=== PATIENT | male | born 1935 | race Caucasian/White ===

== ENCOUNTER 2016-08-05 20:06 | Inpatient (IN) | payer OTHER ==
[~2016-08-05] VITALS: Ht 180.3 cm; Wt 94.8 kg
--- NOTE | ~2016-08-05 | HC ---
[facility] [place] [address] CONSULTATION Name: BUBBA VICKERS Room #: 203-P ADM IN M.R.#: [id number] Admission: 08/05/16 Attend Phys: Lopez Mccall MD Discharge: Date of : 39 Report #: [id number] THIS REPORT FOR: //name// CC: Lopez Saab DATE OF SERVICE: 08/06/2016 Patient is a 81-year-old male followed by Dr. Jimenez Saab and also my partner, Dr. Ortiz. He presented feeling some shortness of breath, shakiness with some atypical chest pain. He was found to be in AFib with rapid ventricular response and subsequently transferred here at [facility]. He was hemodynamically stable, but he states he was very scared from this whole event. He has never had a history of AFib looking through our limited records, and he was only hospitalized at [facility] once in 2002 for nephrectomy due to hydronephrosis. He saw Dr. Ortiz last summer. He has been on the same medications. He states he did lose his in the interim and has had terrible depression with that. He is accompanied by his daughter here. He is now converted to sinus rhythm 80s to 90s. He has not been sick. This was spontaneous occurrence yesterday for the first time, but he felt the tachycardia. MEDICATIONS: He is on Zyrtec, Lumigan, glimepiride 6 mg once a day, Toprol 50, Lipitor 40, baby aspirin, Norvasc 10 b.i.d., lisinopril/HCT 20/12.5, clonidine 0.2 b.i.d. 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 SOCIAL HISTORY: Recently . Lives independently. He was a 3 pack a day smoker until 10 years ago. No alcohol. He is retired from [employer]: [employer]. FAMILY HISTORY: Positive for strokes, but no premature disease that he can remember. ALLERGIES: No known drug allergies. REVIEW OF SYSTEMS: Negative except for some occasional nocturia hesitancy. PHYSICAL EXAMINATION: VITAL SIGNS: Blood pressure 150/90, pulse is 90s. HEENT: He has enucleated right eye blindness. No xanthomas. Pharynx is clear. NECK: Shows preserved upstrokes without JVD or bruits. LUNGS: Markedly prolonged phase, diminished in the bases. [address] [address] CONSULTATION Name: BUBBA VICKERS Room #: 203-P ADM IN M.R.#: [id number] Admission: 08/05/16 Attend Phys: Lopez Mccall MD Discharge: Date of : 39 Report #: [id number] CARDIOVASCULAR: Distant heart tones, S1, S2. Faint holosystolic murmur was noted. ABDOMEN: Soft. No HSM or abdominal bruit. EXTREMITIES: Trace of edema, mild venous stasis changes, distal pulses diminished, but intact. NEUROLOGIC: Nonfocal. SKIN: Warm and dry without xanthoma or ulcer. MUSCULOSKELETAL: No gross joint deformity. ASSESSMENT: 1. Atrial fibrillation with rapid ventricular response, symptomatic. 2. Chronic obstructive pulmonary disease. 3. Mild ischemic cardiomyopathy with history of limited inferior wall infarct, last nuclear exam was 05/2015. 4. Degenerative joint disease. 5. History of lung cancer with radiation. 6. Diabetes. RECOMMENDATIONS AND PLAN: He is currently converted. We will utilize p.o. Cardizem and p.o. amiodarone to maintain sinus rhythm. I would still opt for anticoagulation here. Electrolytes replacement. There is a questionable infiltrate in the left lower lobe. I will currently treat that with the primary. This may what had precipitated, although he denies being significantly sick previously. He states he has some coughing. We will continue the other medications, obviously has some component of refractory hypertension. Presumably stabilized him, place him on anticoagulation and consider an outpatient repeat stress testing in the light the fact that he had some chest discomfort with this whole event, but currently is pain free. Further recommendations, pending his clinical course. Thank you for asking me to assist in the care of this patient. By: 0914 1533 Dany Vincent MD, FACC /nt
--- NOTE | ~2016-08-05 | H ---
[facility] [place] [address] HISTORY AND PHYSICAL Name: BUBBA VICKERS JR Room #: 203-P [facility] IN M.R.#: [id number] Admission: 08/05/16 Attend Phys: Lopez Mccall MD Discharge: 08/08/16 Date of : 39 Report #: [id number] THIS REPORT FOR: //name// CC: Lopez Saab DICTATED BY: Alyssa DENT ATTENDING PHYSICIAN: Dr. Casarez. PRIMARY CARE PHYSICIAN: Jimenez Saab M.D. CHIEF COMPLAINT: Shortness of breath. HISTORY OF PRESENT ILLNESS: The patient is a 81-year-old elderly male who was initially taken to [facility] for respiratory distress. He said that it came on very suddenly when he was at rest this evening. He has had a recent cough with some phlegm production, but he felt that was improving. Overall, he has had increasing shortness of breath as well as dyspnea on exertion. He denies having any chest pain with this episode tonight. Denies any significant edema. He has had somewhat of a cough with some clear phlegm production. He denies any orthopnea. He did have a stress test about a year ago with Dr. Ortiz and he was told that it was negative. He was evaluated at [place] and noted to have fluid overload, so he was given Lasix as well as Cardizem, Levaquin, aspirin and Nitro Paste. He is currently resting much more comfortably. He does have a history of some chronic kidney disease growing up. He just recently saw a laboratory development technician, Dr. Maldonado, who had a renal ultrasound performed. He does not know those results yet. PAST MEDICAL HISTORY: Diabetes; hypertension; diverticulitis; nephrolithiasis; blindness; right eye, abdominal aortic aneurysm; lung cancer, status post radiation hyperlipidemia and . PAST SURGICAL HISTORY: Right nephrectomy, lung biopsy and Zenker's diverticulum. ALLERGIES: None. HOME MEDICATIONS: Lisinopril 20 mg p.o. b.i.d., sodium bicarbonate 650 mg p.o. b.i.d., amlodipine 10 mg p.o. b.i.d., clonidine 0.2 mg b.i.d., Lumigan eyedrops one drop to each eye q. evening, atorvastatin 80 mg daily, metoprolol XL 50 mg daily, glimepiride 4 mg p.o. daily, aspirin 81 mg p.o. daily, Zyrtec 10 mg p.o. and cinnamon stalk daily. SOCIAL HISTORY: The patient lives alone. He is a since March of this year, when his . There is no history of alcohol or drug use. He is an ex-smoker, having smoked up to 2 packs of cigarettes per day [address] [address] HISTORY AND PHYSICAL Name: BUBBA VICKERS Room #: 203-P [facility] IN ..#: [id number] Admission: 08/05/16 Attend Phys: Lopez Mccall MD Discharge: 08/08/16 Date of : 39 Report #: [id number] since the age of 17. He quit smoking 12 years ago. FAMILY HISTORY: Significant for throat cancer in his brother and also family members with diabetes and stroke. His uncle had an HI. His brother had nephrectomy for renal cancer. PHYSICAL EXAMINATION: GENERAL: The patient is an alert male in no acute distress. VITAL SIGNS: Temperature is 36.6, heart rate 84, respirations 16, blood pressure is 117/77 and oxygen 90% on room air. HEENT: PERRLA. Sclerae are nonicteric. Oral mucosa is pink and moist. NECK: Supple. No JVD noted. CARDIAC: Heart rate is irregular, but no murmurs, rubs or gallops. RESPIRATORY: Breath sounds are clear, bilateral upper lobes. He does have a few fine crackles in both bases. Breathing is nonlabored. ABDOMEN: Obese, soft, round, nontender and nondistended, with positive bowel sounds. VASCULAR: With 1+ bilateral lower extremity edema. Pedal pulses are 2+. NEUROLOGIC: The patient is alert and oriented times 3. Speech is clear. He is answering questions appropriately and following commands. No focal weakness noted. LABS AND DIAGNOSTICS: WBC 11, hemoglobin 13.5 and platelets 337,000. Sodium 143, potassium 4.3, BUN 47, creatinine 1.7 and glucose is 170. Lactate is 2.5. BNP is 1575. Troponins negative. LFTs are within normal limits. Chest x-ray showed lingular pneumonia, which was prominent alongside some interstitial changes felt to represent edema versus fibrotic or emphysematous changes. EKG showed atrial flutter with rapid rate of 125. ASSESSMENT AND PLAN: 1. Acute heart failure with unknown ejection fraction. The patient denies any history of congestive heart failure. We will try a few more doses of IV Lasix for diuresis and check an echocardiogram. Consult cardiology, who was also concerned for Takotsubo cardiomyopathy, as he is a recent . 2. Atrial fibrillation with rapid ventricular response. This is new onset and looks well. His rate is now controlled on the Cardizem drip. We will try to wean that off and again, cardiology is consulted. 3. Diabetes type 2. Blood sugars are stable. Continue glimepiride as at home and add sliding scale insulin. 4. Chronic kidney disease stage 3. He was recently evaluated by Dr. Maldonado with nephrology and had a renal ultrasound, which he was reported as negative. Since he does have a prior right nephrectomy, his renal function has been monitored closely. 5. Hypertension. Blood pressure is stable. Continue home meds. 6. History of lung cancer. According to the patient, this was only treated [facility] [address] [place] [address] HISTORY AND PHYSICAL Name: BUBBA VICKERS Room #: 203-P [facility] IN ..#: [id number] Admission: 08/05/16 Attend Phys: Lopez Mccall MD Discharge: 08/08/16 Date of : 39 Report #: [id number] with radiation treatments and his last 2 CAT scans have been clear for any residual disease. 7. Possible pneumonia. The patient did have mildly elevated lactate and he did receive Levaquin. The chest x-ray mentioned a lingular pneumonia, but this may also be related to scarring from his prior lung cancer. Continue antibiotics for now. 8. Deep venous thrombosis prophylaxis, place SCDs. We will continue to follow the patient closely throughout the hospitalization and make changes based on clinical status. <ELECTRONICALLY SIGNED> By: Colby Casarez MD 08/08/16 1312 0949 1239 Colby Casarez MD /shahla
--- NOTE | ~2016-08-05 | 2DMMODE ---
[facility] [place] [place] [address] [place] [address] 2 D/M-MODE ECHOCARDIOGRAM Name: BUBBA VICKERS Room #: 203-P ADM IN .R.#: [id number] Admission: 08/05/16 Attend Phys: Maria L Garrido Discharge: Date of : 39 Date of Service: 08/06/16 1150 Report #: [id number] THIS REPORT FOR: //name// APPROVED REPORT Study performed: 08/06/2016 10:32:54 EXAM: Comprehensive 2D, Doppler, and color-flow Echocardiogram Patient Location: Echo lab Room #: [facility] Status: routine Other Information Study Quality: Adequate Indications Congestive Heart Failure Atrial Fibrillation Dyspnea 2D Dimensions RVDd: 37.56 mm LVEF(%): 43.17 (>50%) IVSd: 12.21 (7-11mm) LVOT Diam: 21.99 (18-24mm) LVDd: 51.49 mm PWd: 12.58 (7-11mm) Ascending Ao: 36.43 (22-36mm) LVDs: 40.46 (25-40mm) Aortic Root: 36.29 mm Clarke's LVEF: 43.17 % Volumes Left Atrial Volume (Systole) Single Plane 4CH: 68.46 mL Single Plane 2CH: 66.76 mL LA ESV Index: 40.00 mL/m2 Aortic Valve AoV Peak Tevin.: 1.82 m/s AO Peak Gr.: 13.28 mmHg LVOT Max P.25 mmHg AO Mean Gr.: 7.91 mmHg AO V2 Mean: 1.37 m/s LVOT Max V: 1.03 m/s AO V2 VTI: 30.82 cm YING Vmax: 2.15 cm2 Mitral Valve E/A Ratio: 1.3 MV Decel. Time: 115.[address] [facility] [place] [place] [employer] [place] [address] 2 D/M-MODE ECHOCARDIOGRAM Name: BUBBA VICKERS Room #: 203-P [facility] IN M.R.#: [id number] Admission: 08/05/16 Attend Phys: Maria L Garrido Discharge: Date of : 39 Date of Service: 08/06/16 1150 Report #: [id number] E Max Tevin.: 1.17 m/s MV A Tevin.: 0.89 m/s MV PHT: 33.48 ms IVRT: 48.44 ms Pulmonary Valve PV Peak Tevin.: 1.08 m/s PV Peak Gr.: 4.67 mmHg Tricuspid Valve TR Peak Tevin.: 4.02 m/s RAP Estimate: 5.00 mmHg TR Peak Gr.: 64.62 mmHg PA Pressure: 70.00 mmHg Left Ventricle The left ventricle is normal size. Mild concentric left ventricular hypertrophy. Left ventricular systolic function is normal LVEF is 50%. Moderate diastolic dysfunction is present (pseudonormal filling). Right Ventricle The right ventricle is normal size. The right ventricular systolic function is normal. Atria Left atrium is dilated. Right atrium is at the upper limits of normal. Aortic Valve Aortic valve is calcified. No aortic regurgitation is present. There is no aortic valvular stenosis. Mitral Valve There is mitral annular calcification. Mild mitral regurgitation. No evidence of mitral valve stenosis. Tricuspid Valve The tricuspid valve is normal in structure. There is moderate tricuspid regurgitation. The right atrial pressure is estimated at 5 mmHg. There is moderate-severe pulmonary hypertension with an estimated PAP of 70mmHg. Pulmonic Valve The pulmonary valve is normal in structure. There is no pulmonic valvular regurgitation. Great Vessels [address] [address] 2 D/M-MODE ECHOCARDIOGRAM Name: BUBBA VICKERS Room #: 203-P [facility] IN .R.#: [id number] Admission: 08/05/16 Attend Phys: Maria L Garrido Discharge: Date of : 39 Date of Service: 08/06/16 1150 Report #: [id number] The aortic root is normal in size. Ascending aorta is not well visualized. IVC is normal in size and collapses >50% with inspiration. Pericardium There is no pericardial effusion. <Conclusion> Left ventricular systolic function is at lower limits of normal LVEF is 50%. Both atria are dilated. Aortic valve is calcified, no aortic valvular stenosis or insuffiency. There is mitral annular calcification. Mild mitral regurgitation. Pulmonary artery pressure of 70mmHg There is no pericardial effusion. <ELECTRONICALLY SIGNED> By: Kane Arias MD, [facility] 08/06/16 1150 1150 1150 Kane Arias MD, FACC /INF
[2016-08-05] MEDS ORDERED: ZESTRIL20 MG PO (22:14)
[2016-08-05] MEDS ORDERED: SODIUM BICARBO650 M3 PO (22:15)
[2016-08-05] MEDS ORDERED: AMLODIPINE BESY10 MG PO (22:16)
[2016-08-05] MEDS ORDERED: LUMIGAN2.5 M1 OP (22:17)
[2016-08-05] MEDS ORDERED: CATAPRES0.2 MG PO (22:17)
[2016-08-05] MEDS ORDERED: LIPITOR40 MG PO (22:18)
[2016-08-05] MEDS ORDERED: TOPROL XL50 MG PO (22:19)
[2016-08-05] MEDS ORDERED: AMARYL4 MG PO (22:19)
[2016-08-05] MEDS ORDERED: ASPIR 8181 M1 PO (22:20)
[2016-08-05] MEDS ORDERED: CINNAMON500 MG PO (22:21)
[2016-08-05] MEDS ORDERED: ZYRTEC10 M4 PO (22:21)
[2016-08-05 22:26] VITALS: BP 157/77
[2016-08-05 23:58] VITALS: BP 152/76
[2016-08-06 04:10] LABS: HEMATOCRIT 34.3 % (42.0-52.0); HEMOGLOBIN 11.4 gm/dL (14.0-18.0); MCH 29.5 pg (26.0-34.0); MCHC 33.2 g/dL (28.0-37.0); MCV 88.9 fL (80.0-100.0); RBC 3.86 mil/uL (4.50-6.00); RDW 15.2 % (10.5-14.5)
[2016-08-06 04:23] LABS: CALCIUM 8.6 mg/dL (8.5-10.1); MAGNESIUM 1.2 mg/dL (1.8-2.4); POTASSIUM 4.7 mmol/L (3.5-5.1)
[2016-08-06 04:38] VITALS: BP 152/75
[2016-08-06 08:57] VITALS: BP 152/79
[2016-08-06 12:47] VITALS: BP 133/65
[2016-08-06 17:43] VITALS: BP 139/71
[2016-08-06 19:23] VITALS: BP 131/70
[2016-08-07 01:49] LABS: HEMATOCRIT 33.2 % (42.0-52.0); HEMOGLOBIN 11.1 gm/dL (14.0-18.0); MCH 29.8 pg (26.0-34.0); MCHC 33.4 g/dL (28.0-37.0); MCV 89.2 fL (80.0-100.0); RBC 3.73 mil/uL (4.50-6.00); RDW 15.5 % (10.5-14.5); WBC 7.9 thou/uL (4.0-11.0)
[2016-08-07 01:52] LABS: CALCIUM 8.7 mg/dL (8.5-10.1); CREATININE 2.2 mg/dL (0.7-1.3); MAGNESIUM 2.2 mg/dL (1.8-2.4); POTASSIUM 4.3 mmol/L (3.5-5.1)
[2016-08-07 03:39] VITALS: BP 119/71
[2016-08-07 08:20] VITALS: BP 126/58
[2016-08-07 12:55] VITALS: BP 109/54
[2016-08-07 16:40] VITALS: BP 177/77
[2016-08-07 19:32] VITALS: BP 147/68
[2016-08-08 03:53] VITALS: BP 130/69
[2016-08-08 07:42] VITALS: BP 130/69
[2016-08-08 07:55] VITALS: BP 144/62
[2016-08-08] MEDS ORDERED: PACERONE 200 M200 M1 PO (09:43)
[2016-08-08] MEDS ORDERED: ELIQUIS5 MG PO (09:43)
[2016-08-08] MEDS ORDERED: METOPROLOL SUCC25 M1 PO (09:43)
[2016-08-08] MEDS ORDERED: CARDIZEM CD 18180 M3 PO (09:43)
[2016-08-08] MEDS ORDERED: AUGMENTIN 875875 MG PO (11:38)
[2016-08-08 12:00] VITALS: BP 130/69
== END 2016-08-08 11:29 | disposition home health service (06) | DRG 871 ==
LOC: 2N 20:06
PROVIDERS: Family Medicine; Nurse Practitioner Acute Care; Nurse Practitioner Adult Health
DX: A41.9 Sepsis, unspecified organism (principal); J18.9 Pneumonia, unspecified organism; I13.0 Hypertensive heart and chronic kidney disease with heart failure and stage 1 through stage 4 chronic kidney disease, or unspecified chronic kidney disease; J44.1 Chronic obstructive pulmonary disease with (acute) exacerbation; I48.91 Unspecified atrial fibrillation; E78.00 Pure hypercholesterolemia, unspecified; Z60.2 Problems related to living alone; M19.90 Unspecified osteoarthritis, unspecified site; I25.5 Ischemic cardiomyopathy; E11.22 Type 2 diabetes mellitus with diabetic chronic kidney disease; N18.3 Chronic kidney disease, stage 3 (moderate); H54.0 Blindness, both eyes; I71.4 Abdominal aortic aneurysm, without rupture; I27.2 Other secondary pulmonary hypertension; E78.5 Hyperlipidemia, unspecified; Z98.42 Cataract extraction status, left eye; Z98.41 Cataract extraction status, right eye; Z87.442 Personal history of urinary calculi; Z85.118 Personal history of other malignant neoplasm of bronchus and lung; Z87.891 Personal history of nicotine dependence; Z90.5 Acquired absence of kidney; Z98.52 Vasectomy status; Z79.82 Long term (current) use of aspirin; Z79.899 Other long term (current) drug therapy; Z80.8 Family history of malignant neoplasm of other organs or systems; Z83.3 Family history of diabetes mellitus; Z82.3 Family history of stroke; Z82.49 Family history of ischemic heart disease and other diseases of the circulatory system; Z84.1 Family history of disorders of kidney and ureter
CPT/HCPCS: 10081

== ENCOUNTER 2016-08-25 02:01 | Inpatient (IN) | payer OTHER ==
[~2016-08-25] VITALS: Ht 180.3 cm; Wt 91.4 kg
--- NOTE | ~2016-08-25 | CATHLAB ---
[facility] [address] [address] [place] [address] INVASIVE PROCEDURE REPORT Name: BUBBA VICKERS Room #: 213-P [facility] IN ..#: [id number] Admission: 08/25/16 Attend Phys: Adela Fitzgerald Discharge: Date of : 39 Date of Service: 08/31/16 0918 Report #: [id number] THIS REPORT FOR: //name// APPROVED REPORT Patient Details The patient is a 81 year-old male Indication Non-STEMI , Heart failure, Positive stress test Risk Factors Hypercholesterolemia, HypertensionRenal Failure Previous Procedures/Diagnoses Previous CA Procedure Narrative The patient was brought electively to the Cardiac Catheterization Laboratory and was prepped and draped in a sterile manner. The Right Groin^ was infiltrated with 1% Lidocaine subcutaneous anesthesia. A PINNACLE 4FR Sheath #[id number] sheath was inserted into the RFA^. Coronary angiography was performed using coronary diagnostic catheters. The right coronary system was accessed and visualized with a JR4 catheter. The left coronary system was accessed and visualized with a JL4 catheter. Left ventricular/Aortic Valve gradient assessed via catheter pullback. The patient tolerated the procedure well and there were no complications associated with the procedure. There was no hematoma. Intraoperative Conscious Sedation Sedation start time: 8:01 Case end Time: 8:23 Fluoro Time: 3.00 minutes Dose: 501 mGy Contrast Type and Amount: Visipaque 27 ml Coronary Angiography The patient's coronary anatomy is right dominant. Diagnostic Cath Left Main Large caliber vessel with moderate stenosis at the distal segment, 40-50%. LAD Severe stenosis at the ostium, 70-80%. Diagonal 1 Ostial stenosis of 60-70%. [facility] [address] [place] [address] INVASIVE PROCEDURE REPORT Name: ALEEBUBBA Marisela Room #: 213-P [facility] IN ..#: [id number] Admission: 08/25/16 Attend Phys: Adela Fitzgerald Discharge: Date of : 39 Date of Service: 08/31/16 0918 Report #: [id number] Diagonal 2 Ostial stenosis of 95%(small caliber vessel). Circumflex Severe stenosis at the proximal segment, 90%. Right Coronary Subtotal occlusion in the midsegment. The distal RCA and multiple branches are filled via collateral circulation from the left coronary artery. Left Ventriculography Left Ventriculography was not performed. Ejection Fraction was 45-50% based off patient's Nuclear Cardiac Stress Test. LVEDP is approximately 15 mmHg. No gradient across the aortic valve. Hemodynamics The aortic pressure is 161/71 mmHg with a mean of 98 mmHg. The left ventricular pressure is 164/9 mmHg with a mean of mmHg. The left ventricular end diastolic pressure is 18 mmHg. Conclusion Severe three-vessel coronary artery disease. Plan is to obtain CV consultation for bypass surgery. Aggressive medical therapy is recommended. Recommendations Aggressive Medical Therapy CABG <ELECTRONICALLY SIGNED> By: Yoel Ortiz MD 08/31/16917 7 7 Yoel Ortiz MD /INF
--- NOTE | ~2016-08-25 | EKG ---
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: CON : 1935 Requested By: Jeremy Echavarria Order Number: [id number] MD: Kane Arias Measurements Intervals [place] Rate: 61 P: 34 HI: 150 QRS: 67 QRSD: 108 T: -14 QT: 507 QTc: 511 Interpretive Statements Sinus rhythm Abnormal R-wave progression, early transition Borderline repolarization abnormality Prolonged QT interval Compared to ECG 07/17/2007 09:58:29 ST segment abnormality is less pronounced early R-wave progression now present Electronically Signed On 08-27-2016 9:22:26 CDT by Kane Arias [email or web address] <ELECTRONICALLY SIGNED> By: Kane Arias MD, [facility] 08/27/16 0922 0747 0747 Kane Arias MD, [facility] /EPI
--- NOTE | ~2016-08-25 | EKG ---
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 : 1935 Requested By: Cindy Arreaga Order Number: [id number] MD: Kane Arias Measurements Intervals [place] Rate: 103 P: 46 IN: 169 QRS: 20 QRSD: 120 T: 86 QT: 388 QTc: 508 Interpretive Statements Sinus tachycardia LVH with IVCD and secondary repol abnrm Prolonged QT interval Compared to ECG 07/17/2007 09:58:29 ST segment abnormality now present Left ventricular hypertrophy now present Prolonged QT interval now present Electronically Signed On 08-27-2016 9:10:59 CDT by Kane Arias [email or web address] <ELECTRONICALLY SIGNED> By: Kane Arias MD, [facility] 08/27/16 0910 1104 1104 Kane Arias MD, [facility] /EPI
--- NOTE | ~2016-08-25 | SPIROMETRY ---
[facility] [address] [place] [address] SPIROMETRY Name: BUBBA VICKERS JR Room #: 213-P ADM IN M.R.#: [id number] Admission: 08/25/16 Attend Phys: Adela Moran MD Discharge: Date of : 39 Report #: [id number] THIS REPORT FOR: //name// COPIES FOR: >> SPIROMETRY: (BTPS) Height: 70 in cm Weight: 194 lbs kg Exam Date: 08/31/16 PRE-RX POST-RX PRED BEST %PRED BEST %PRED %CHG FVC LITERS . 3.89 . 1.922. . 75 . 2.95 . 76 . 1 FEV1 LITERS . 3.02 . 1.92 . 64 . 1.97 . 65 . 3 FEV1/FVC % . 79 . 66 . 84 . 67 . 85 . 2 MIG85-01% L/Sec . 2.92 . 1.19 . 41 . 1.08 . 37 . -14 PEF L/SEC . 7.98 . 4.82 . 60 . 5.72 . 72 . 19 FEF50/FIF50 UNITLESS . . . . . . By: D: /MARIYA
[2016-08-25 02:00] VITALS: BP 178/90
[~2016-08-25 02:01] MED LIST: AMARYL4 MG PO; AMLODIPINE BESY10 MG PO; ASPIR 8181 M1 PO; AUGMENTIN 875875 MG PO; CARDIZEM CD 18180 M3 PO; CATAPRES0.2 MG PO; CINNAMON500 MG PO; ELIQUIS5 MG PO; LIPITOR40 MG PO; LUMIGAN2.5 M1 OP; METOPROLOL SUCC25 M1 PO; PACERONE 200 M200 M1 PO; SODIUM BICARBO650 M3 PO; TOPROL XL50 MG PO; ZESTRIL20 MG PO; ZYRTEC10 M4 PO
[2016-08-25 03:00] VITALS: BP 169/79
[2016-08-25] MEDS ORDERED: ZESTRIL20 MG PO (04:23)
[2016-08-25 05:59] LABS: CREATININE 1.8 mg/dL (0.7-1.3)
[2016-08-25 08:03] VITALS: BP 164/95
[2016-08-25 08:27] LABS: CK-MB MASS 34.1 ng/mL (<0.5-3.6)
[2016-08-25 08:31] LABS: TROPONIN-I 11.98 ng/mL (<0.04-0.07)
[2016-08-25 11:12] LABS: TROPONIN-I 12.7 ng/mL (<0.04-0.07)
[2016-08-25 11:15] VITALS: BP 183/95
[2016-08-25 12:27] LABS: CK-MB MASS 35.7 ng/mL (<0.5-3.6)
[2016-08-25 15:41] LABS: CK-MB MASS 21.1 ng/mL (<0.5-3.6)
[2016-08-25 15:43] LABS: TROPONIN-I 10.48 ng/mL (<0.04-0.07)
[2016-08-25 16:17] VITALS: BP 116/60
[2016-08-25 19:43] LABS: CK-MB MASS 17.5 ng/mL (<0.5-3.6)
[2016-08-25 19:45] LABS: TROPONIN-I 10.31 ng/mL (<0.04-0.07)
[2016-08-25 20:35] VITALS: BP 142/78
[2016-08-26 00:20] VITALS: BP 141/76
[2016-08-26 04:17] VITALS: BP 142/76
[2016-08-26 06:27] LABS: CALCIUM 8.2 mg/dL (8.5-10.1); CREATININE 2.3 mg/dL (0.7-1.3); POTASSIUM 4.6 mmol/L (3.5-5.1)
[2016-08-26 07:32] VITALS: BP 150/77
[2016-08-26 11:03] LABS: HEMATOCRIT 33.7 % (42.0-52.0); HEMOGLOBIN 10.8 gm/dL (14.0-18.0); MANUAL DIFF YES; MCH 28.7 pg (26.0-34.0); MCHC 32.1 g/dL (28.0-37.0); MCV 89.4 fL (80.0-100.0); PLATELET COUNT 348 thou/uL (150-400); RBC 3.77 mil/uL (4.50-6.00); RDW 14.9 % (10.5-14.5); WBC 11.6 thou/uL (4.0-11.0)
[2016-08-26 11:12] VITALS: BP 142/70
[2016-08-26 11:19] LABS: MAGNESIUM 1.3 mg/dL (1.8-2.4)
[2016-08-26 11:35] LABS: ABSOLUTE NEUTROPHILS 10.2 thou/uL (1.4-8.2); PLATELET ESTIMATE NORMAL; TOTAL CELL COUNT 100
[2016-08-26 11:42] LABS: TROPONIN-I 6.01 ng/mL (<0.04-0.07)
[2016-08-26 15:11] VITALS: BP 108/60
[2016-08-26 19:31] VITALS: BP 151/75
[2016-08-27 05:30] VITALS: BP 163/72
[2016-08-27 05:48] LABS: HEMATOCRIT 33.5 % (42.0-52.0); HEMOGLOBIN 11.2 gm/dL (14.0-18.0); MCH 29.2 pg (26.0-34.0); MCHC 33.3 g/dL (28.0-37.0); MCV 87.6 fL (80.0-100.0); RBC 3.82 mil/uL (4.50-6.00); RDW 14.8 % (10.5-14.5); WBC 9.6 thou/uL (4.0-11.0)
[2016-08-27 06:12] LABS: CREATININE 2.5 mg/dL (0.7-1.3); MAGNESIUM 1.3 mg/dL (1.8-2.4); POTASSIUM 4.3 mmol/L (3.5-5.1)
[2016-08-27 07:32] VITALS: BP 166/73
[2016-08-27 12:09] VITALS: BP 176/82
[2016-08-27 15:35] VITALS: BP 109/84
[2016-08-27 19:55] VITALS: BP 108/56
[2016-08-28 00:08] VITALS: BP 110/60
[2016-08-28 07:36] LABS: CALCIUM 8.2 mg/dL (8.5-10.1); CREATININE 2.6 mg/dL (0.7-1.3); POTASSIUM 4.5 mmol/L (3.5-5.1)
[2016-08-28 08:30] VITALS: BP 145/65
[2016-08-28 12:11] LABS: URINE BILIRUBIN NEGATIVE (Negative); URINE BLOOD NEGATIVE (Negative); URINE COLOR YELLOW; URINE GLUCOSE-RANDOM* NEGATIVE (Negative); URINE KETONES NEGATIVE (Negative); URINE NITRITE NEGATIVE (Negative); URINE PROTEIN (DIPSTICK) NEGATIVE (Negative); URINE UROBILINOGEN 0.2 E.U./dl (0.2-1.0)
[2016-08-28 12:26] LABS: URINE CREATININE-RANDOM* 66.2 mg/dL
[2016-08-28 15:42] VITALS: BP 139/71
[2016-08-28 20:20] VITALS: BP 131/59
[2016-08-29 05:08] VITALS: BP 132/68
[2016-08-29 06:44] LABS: ALBUMIN 2.4 g/dL (3.4-5.0); CALCIUM 8.2 mg/dL (8.5-10.1); CREATININE 2.1 mg/dL (0.7-1.3); PHOSPHORUS 3.3 mg/dL (2.5-4.9); POTASSIUM 4.4 mmol/L (3.5-5.1)
[2016-08-29 09:13] VITALS: BP 153/79
[2016-08-29 12:00] VITALS: BP 114/62
[2016-08-29 16:45] VITALS: BP 190/84
[2016-08-29 17:52] VITALS: BP 145/72
[2016-08-29 19:41] VITALS: BP 133/59
[2016-08-30 05:40] LABS: HEMATOCRIT 36.5 % (42.0-52.0); MCH 29.1 pg (26.0-34.0); RBC 4.14 mil/uL (4.50-6.00); RDW 14.7 % (10.5-14.5); WBC 7.3 thou/uL (4.0-11.0)
[2016-08-30 05:45] VITALS: BP 147/70
[2016-08-30 05:52] LABS: APTT 27.8 Seconds (24.5-32.8); INR 1.1; PROTIME 11.3 Seconds (9.3-11.4)
[2016-08-30 05:56] LABS: ALBUMIN 2.6 g/dL (3.4-5.0); CALCIUM 8.4 mg/dL (8.5-10.1); PHOSPHORUS 3.1 mg/dL (2.5-4.9); POTASSIUM 4.2 mmol/L (3.5-5.1)
[2016-08-30 08:00] VITALS: BP 161/71
[2016-08-30 10:37] LABS: CALCIUM 8.9 mg/dL (8.5-10.1); CREATININE 1.8 mg/dL (0.7-1.3); POTASSIUM 4.6 mmol/L (3.5-5.1)
[2016-08-30 16:00] VITALS: BP 161/68
[2016-08-30 20:30] VITALS: BP 127/56
[2016-08-31] VITALS (7 sets, daily range): BP systolic 148–174; BP diastolic 65–84
[2016-08-31 06:37] LABS: ALBUMIN 2.5 g/dL (3.4-5.0); CALCIUM 8.2 mg/dL (8.5-10.1); CREATININE 1.9 mg/dL (0.7-1.3); PHOSPHORUS 3.1 mg/dL (2.5-4.9)
[2016-08-31 13:41] LABS: ABG SAMPLE TYPE ARTERIAL; BE(vivo) 5.4 mmol/L (-2 to +3); HCO3 28.9 mmol/L (22.0-26.0); O2(CT) 15.8 mL/dL (15.0-23.0); PCO2 38.3 mmHg (35.0-45.0); PO2 62.6 mmHg (80.0-100.0); pH 7.496 (7.360-7.450); sO2 93.7 % (92.0-98.0); tCO2 30.1 mmol/L (24.0-30.0)
[2016-08-31 13:42] LABS: STICK SITE L.BRACHIAL
[2016-09-01] VITALS (11 sets, daily range): BP systolic 126–225; BP diastolic 64–109
[2016-09-01 05:03] LABS: HEMATOCRIT 37.7 % (42.0-52.0); HEMOGLOBIN 12.2 gm/dL (14.0-18.0); MCH 28.8 pg (26.0-34.0); MCHC 32.4 g/dL (28.0-37.0); MCV 88.9 fL (80.0-100.0); RBC 4.24 mil/uL (4.50-6.00); WBC 7.2 thou/uL (4.0-11.0)
[2016-09-01 05:11] LABS: ALBUMIN 2.6 g/dL (3.4-5.0); CREATININE 2.1 mg/dL (0.7-1.3); POTASSIUM 4.5 mmol/L (3.5-5.1)
[2016-09-02 03:20] LABS: ALBUMIN 2.2 g/dL (3.4-5.0); CALCIUM 8.1 mg/dL (8.5-10.1); CREATININE 2.2 mg/dL (0.7-1.3); PHOSPHORUS 3.2 mg/dL (2.5-4.9); POTASSIUM 4.7 mmol/L (3.5-5.1)
[2016-09-02 08:00] VITALS: BP 212/99
[2016-09-02 12:00] VITALS: BP 139/68
[2016-09-02 16:00] VITALS: BP 185/88
[2016-09-02 19:22] VITALS: BP 208/103
[2016-09-02 23:26] VITALS: BP 151/85
[2016-09-03 03:00] LABS: ALBUMIN 2.3 g/dL (3.4-5.0); CALCIUM 8.5 mg/dL (8.5-10.1); CREATININE 2.1 mg/dL (0.7-1.3); PHOSPHORUS 3.5 mg/dL (2.5-4.9); POTASSIUM 4.9 mmol/L (3.5-5.1)
[2016-09-03 03:46] VITALS: BP 193/114
[2016-09-03 07:59] VITALS: BP 223/113
[2016-09-03] MEDS ORDERED: HYDRALAZINE 5050 MG PO (11:42)
[2016-09-03] MEDS ORDERED: NORVASC10 MG PO (11:43)
[2016-09-03] MEDS ORDERED: CARVEDILOL12.5 MG PO (11:43)
[2016-09-03] MEDS ORDERED: IMDUR 60 MG TAB60 M1 PO (11:43)
[2016-09-03] MEDS ORDERED: ASPIR 8181 MG PO (11:44)
[2016-09-03] MEDS ORDERED: CHLORTHALIDONE25 MG PO (11:44)
[2016-09-03 12:03] VITALS: BP 223/113
[2016-09-03 12:13] VITALS: BP 188/96
[2016-09-03 13:51] VITALS: BP 223/113
[2016-09-04 04:07] LABS: GLYCOHEMOGLOBIN (HGB A1C) 7.3 % (4.8-5.6)
== END 2016-09-03 13:45 | disposition home or self-care (01) | DRG 871 ==
LOC: 2N 02:01 → 4W 02:01 → 4S 08-27 23:50 → 2N 08-31 08:58
PROVIDERS: Hospitalist; Internal Medicine Cardiovascular Disease; Internal Medicine Geriatric Medicine; Internal Medicine Nephrology; Nurse Practitioner; Registered Nurse
PROC: B2111ZZ Fluoroscopy of Multiple Coronary Arteries using Low Osmolar Contrast (ICD-10-PCS; principal; 2016-08-31)
PROC: 4A023N7 Measurement of Cardiac Sampling and Pressure, Left Heart, Percutaneous Approach (ICD-10-PCS; principal; 2016-08-31)
DX: A41.9 Sepsis, unspecified organism (principal); I21.4 Non-ST elevation (NSTEMI) myocardial infarction; J96.01 Acute respiratory failure with hypoxia; I50.33 Acute on chronic diastolic (congestive) heart failure; R04.2 Hemoptysis; I13.0 Hypertensive heart and chronic kidney disease with heart failure and stage 1 through stage 4 chronic kidney disease, or unspecified chronic kidney disease; N17.9 Acute kidney failure, unspecified; H54.41 Blindness, right eye, normal vision left eye; G89.29 Other chronic pain; M54.9 Dorsalgia, unspecified; J44.9 Chronic obstructive pulmonary disease, unspecified; E78.5 Hyperlipidemia, unspecified; I25.5 Ischemic cardiomyopathy; E11.22 Type 2 diabetes mellitus with diabetic chronic kidney disease; N18.9 Chronic kidney disease, unspecified; I48.0 Paroxysmal atrial fibrillation; I25.10 Atherosclerotic heart disease of native coronary artery without angina pectoris; Z98.42 Cataract extraction status, left eye; Z98.41 Cataract extraction status, right eye; Z87.442 Personal history of urinary calculi; Z87.891 Personal history of nicotine dependence; Z85.118 Personal history of other malignant neoplasm of bronchus and lung; Z92.3 Personal history of irradiation; Z79.82 Long term (current) use of aspirin; Z79.899 Other long term (current) drug therapy; Z98.52 Vasectomy status
CPT/HCPCS: 10047; 10081; 10100

== ENCOUNTER 2016-10-27 01:37 | Inpatient (IN) | payer OTHER ==
[2016-10-27] VITALS (7 sets, daily range): BP systolic 105–183; BP diastolic 74–94
[~2016-10-27] VITALS: Ht 180.3 cm; Wt 83.0 kg
--- NOTE | ~2016-10-27 | H ---
[facility] [place] [address] HISTORY AND PHYSICAL Name: BUBBA VICKERS JR Room #: 307-P ADM IN M.R.#: [id number] Admission: 10/27/16 Attend Phys: Adela Moran Discharge: Date of : 37 Report #: [id number] THIS REPORT FOR: //name// CC: Adela Saab MD DATE OF SERVICE: 10/27/2016 ATTENDING PHYSICIAN: Adela Moran MD. PRIMARY CARE PHYSICIAN: Jimenez Saab MD. CHIEF COMPLAINT: High blood pressure. HISTORY OF PRESENT ILLNESS: The patient is a 81-year-old male who initially went to [facility] for high blood pressure. He states that for the last 2 days, he has been running high blood pressures and has been checking it very frequently at home. He actually went to [facility] earlier in the morning because of the high blood pressure and they gave him some medication which brought the blood pressure down and then he went home. He states that later on in the afternoon, he had developed some low blood sugars down to 52. He did have family member who had of hypoglycemia coma, and so he became very anxious and ended up eating a lot of chocolate to bring his blood sugar up and kept checking his blood pressure over and over at home and said they got as high as 200/100; therefore, his daughter took him into [facility]. He denies any associated chest pain or shortness of breath. He does have a history of a fairly recent non-ST elevation NJ in August for which he was taken for heart catheterization, it did show severe 3-vessel heart disease and he was evaluated by cardiothoracic surgery for CABG, but the patient at that time wanted to continue with medical management and hold off on any CABG. He did follow up with his oyster harvester a month or so ago and he was told everything was looking okay. He was again treated at [place] for high blood pressure with multiple medications and his blood pressure remained elevated. They were actually going to discharge him back to home again, but the patient requested a transfer to [place] because this is where his oyster harvester is. He is currently resting comfortably and has no complaints. He denies any recent headaches or vision changes. He says he has been taking all his blood pressure medications as prescribed. PAST MEDICAL HISTORY: Diabetes, coronary artery disease with recent non-ST elevation NJ, hypertension, solitary kidney with chronic kidney disease stage III, diverticulitis, nephrolithiasis, blindness of the right eye, abdominal aortic aneurysm, lung cancer status post radiation treatment, hyperlipidemia, anxiety, COPD, and paroxysmal atrial fibrillation. [address] [address] HISTORY AND PHYSICAL Name: BUBBA VICKERS Room #: 307-P [facility] IN M.R.#: [id number] Admission: 10/27/16 Attend Phys: Adela Moran Discharge: Date of : 37 Report #: [id number] PAST SURGICAL HISTORY: Right nephrectomy for stone obstruction, lung biopsy, eye repair, and surgery for Zenker's diverticulum. ALLERGIES: None. HOME MEDICATIONS: Eliquis 5 mg p.o. b.i.d., amiodarone 200 mg p.o. daily, Lipitor 80 mg p.o. daily, hydralazine 50 mg p.o. q. 8 hours, Imdur 60 mg p.o. daily, carvedilol 12.5 mg p.o. b.i.d., lisinopril 20 mg p.o. daily, aspirin 81 mg p.o. daily, Xanax 0.25 mg p.o. b.i.d. p.r.n., Lumigan eye drops 1 drop at bedtime and NovoLog insulin 16 units with meals, glimepiride 4 mg p.o. daily, and cinnamon bark 1000 mg p.o. daily. SOCIAL HISTORY: The patient had been living alone after his in March of this year, but since this last hospitalization in August, his daughter has been staying with him. There is no history of alcohol or drug use. He is an ex-smoker, having smoked up to 2 packs of cigarettes at one point since the age of 17. He quit smoking 12 years ago. FAMILY HISTORY: Significant for throat cancer in his brother and there are other family members that have had diabetes and stroke as well as an NJ, his brother did have a nephrectomy for renal cancer. REVIEW OF SYSTEMS: Twelve point review of systems was reviewed with the patient, otherwise negative unless stated in the HPI. PHYSICAL EXAMINATION: GENERAL: The patient is an alert male, in no acute distress. VITAL SIGNS: Temperature 98.1, heart rate 70, respirations 16, blood pressure is 176/77, oxygen is 98% on room air. HEENT: Right pupil is opaque, left pupil is reaction. On the left pupil, sclerae is nonicteric. Oral mucosa is pink and moist. NECK: Supple, no JVD noted. CARDIOVASCULAR: Normal S1, S2. No murmurs, rubs or gallops. RESPIRATORY: Breath sounds are clear bilaterally. No wheezing or rhonchi. Breathing is nonlabored. ABDOMEN: Soft, nontender, nondistended with positive bowel sounds. VASCULAR: Trace bilateral lower extremity edema. Pedal pulses are 2+. NEUROLOGIC: The patient is alert and oriented x 3. He is somewhat hard of hearing, but he answers questions appropriately. He follows all commands. He is moving all extremities equally. No focal neuro deficits noted. LABORATORIES AND DIAGNOSTICS: Blood work done at [place] showed a WBC of 8.6, hemoglobin 12, platelets 298. Sodium 139, potassium 5.2, BUN 53, creatinine 2.09, glucose is 278 and BNP is 2456. Troponin was negative. He did have a chest x-ray there, which showed marked improvement in the previously seen bilateral pulmonary infiltrates. There was still a mass-like density in the [facility] [address] [place] [address] HISTORY AND PHYSICAL Name: BUBBA VICKERS Room #: 307-P [facility] IN .R.#: [id number] Admission: 10/27/16 Attend Phys: Adela Moran Discharge: Date of : 37 Report #: [id number] left lung base. ASSESSMENT AND PLAN: 1. Hypertensive urgency versus anxiety. His blood pressure has improved after hydralazine as well as Xanax. Patient's daughter felt like he needed to be transferred here to be evaluated by his oyster harvester. So, per family request, we will consult Cardiology; although, he is asymptomatic at this time and his blood pressure is improving. His most recent echo showed an EF of 50% with moderate diastolic dysfunction. There was moderate triscuspid regurgitation and [id number] pulmonary hypertension. Continue home medications for now and await further cardiology recommendations. 2. Chronic kidney disease stage III. Last known creatinine was 2.1 in August, so his creatinine is at baseline. Follow labs. 3. Diabetes type 2. He did have an episode of hypoglycemia, but his current blood sugar is 278. We will add back his home medications and premeal insulin and add sliding scale insulin with meals and Accu-Cheks. 4. Paroxysmal atrial fibrillation. He is currently rate controlled on his current medications. He is on Eliquis for anticoagulation, which we will continue. 5. History of lung cancer. Chest x-ray showed a mass-like density in the left lung base. This is the area where he has had previous radiation treatments and nodules, it does not mention that this is growing in size, but the patient was told previously that his lung cancer within remission, he is due to have an outpatient CT in November. He is not having any respiratory difficulties at this time, so we will just have him followup outpatient. 6. Chronic obstructive pulmonary disease. This is stable. No signs of exacerbation. Add breathing treatments p.r.n. 7. DVT prophylaxis, Continue with Eliquis. We will continue to follow the patient closely throughout the hospitalization and make changes based on clinical status. <ELECTRONICALLY SIGNED> By: FILIPE Oconnor 10/27/16 [id number] FILIPE Oconnor /shahla
--- NOTE | ~2016-10-27 | HC ---
[facility] [place] [address] CONSULTATION Name: BUBBA VICKERS Room #: 451-P [facility] IN M.R.#: [id number] Admission: 10/27/16 Attend Phys: Jeremy Echavarria DO Discharge: Date of : 37 Report #: [id number] THIS REPORT FOR: //name// CC: Jeremy Saab REASON FOR THE CONSULTATION: CKD and elevated blood pressure. REASON FOR THE PRESENTATION: Elevated blood pressure. HISTORY OF PRESENT ILLNESS: The patient is 81 with stage 4 chronic kidney disease, who is well known to me from previous visits. He actually saw me in the clinic couple of weeks ago and his blood pressure was under well control. It is not clear to me what had happened with him. I had evaluated him in the clinic as he is known to have solitary kidney. He was admitted a month ago for chest pain episode. His cardiac catheterization revealed 3-vessel disease. He opted not to have anything done other than medical management. We optimized his blood pressure medications like I stated, his blood pressure has under been well control in the last couple of weeks when I saw him in the clinic. He visited with [facility] due to blood pressure and blood sugar issues. There were no acute events related to that; however, he requested to be transferred to [place]. He has no symptoms related to that. Blood pressure was found to be elevated while here and I was asked to manage his blood pressure. PAST MEDICAL HISTORY: 1. Solitary kidney. 2. Diabetes mellitus. 3. Coronary artery disease. 4. Chronic kidney disease, stage 4. 5. Nephrolithiasis. 6. Blindness of the right eye. 7. Abdominal aortic aneurysm. 8. Lung cancer. 9. Hyperlipidemia. 10. AFib. PAST SURGICAL HISTORY: 1. Nephrectomy. 2. Status post lung biopsy. 3. Eye surgery. ALLERGIES: None. HOME MEDICATIONS: 1. Amiodarone. [facility] [address] [place] [address] CONSULTATION Name: BBUBA VICKERS Room #: 451-P [facility] IN [facility]#: [id number] Admission: 10/27/16 Attend Phys: Jeremy Echavarria DO Discharge: Date of : 37 Report #: [id number] 2. Lisinopril. 3. Carvedilol. 4. Hydralazine. 5. Imdur. 6. Glimepiride. 7. Eliquis. SOCIAL HISTORY: He lives alone. His daughter checks on him. No drug or alcohol abuse. FAMILY HISTORY: Throat cancer. REVIEW OF SYSTEMS: GENERAL: No fever or chills. CARDIOVASCULAR: No chest pain or palpitation. PULMONARY: No cough or hemoptysis. GASTROINTESTINAL: No nausea or vomiting. GENITOURINARY: No frequency. No urgency. PHYSICAL EXAMINATION: GENERAL: He is alert and oriented, in no apparent distress. VITAL SIGNS: Blood pressure was 219/115. HEAD AND NECK: No jugular venous distention. No bruit. No thyromegaly. CHEST: Clear to auscultation. CARDIOVASCULAR: Regular with no rub detected. ABDOMEN: Soft and nontender with no hepatosplenomegaly. LOWER EXTREMITIES: No edema with intact peripheral pulses. LABORATORY DATA: Reviewed. Most recent creatinine is at baseline at 1.6. IMAGING DATA: No new imaging. ASSESSMENT, IMPRESSION AND PLAN: 1. Solitary kidney with chronic kidney disease. 2. Chronic kidney disease, stage 4. 3. Hypertension. 4. Diabetes mellitus. 5. Coronary artery disease. The patient is 81, lives alone and I really think that he has issues taking his medications as he is blind and not clear on any of his medications. He will need some assessment with that. Home health should be initiated given the fact that the patient is confused about his medications. When he visited with me in the clinic, his blood pressure was extremely controlled. Kidney function seems to be stable. He should be on an angiotensin-converting enzyme inhibitor and I will increase the dose to 40 mg once a day. He should also be on a beta [facility] [address] [place] [address] CONSULTATION Name: BUBBA VICKERS Room #: 451-P [facility] IN ..#: [id number] Admission: 10/27/16 Attend Phys: Jeremy Echavarria DO Discharge: Date of : 37 Report #: [id number] elbert. His hydralazine and isosorbide nitrate were resumed. He does not have that much of any edema; however, I will add a touch of torsemide to help with his blood pressure control. With the above changes his blood pressure should be back to where it was when he was evaluated in my clinic as it was under perfect control. We will continue to follow along. By: 0801 23 Radames Gomez MD /nt
--- NOTE | ~2016-10-27 | HC ---
[facility] [place] [address] CONSULTATION Name: BUBBA VICKERS Room #: 307-P [facility] IN M.R.#: [id number] Admission: 10/27/16 Attend Phys: Adela Moran Discharge: Date of : 37 Report #: [id number] THIS REPORT FOR: //name// CC: Adela Saab DATE OF SERVICE: 10/27/2016 INDICATION: Hypertensive urgency. HISTORY OF PRESENT ILLNESS: This is a 81-year-old gentleman who was transferred from [facility] for uncontrolled hypertension. For the past few days, he has had elevated blood pressure readings at home, difficult to manage at [facility]. He also had issues with hypoglycemia and was eventually transferred to [facility] for further treatment. He has a significant cardiac history, but denies any episodes of angina, dyspnea, PND, or orthopnea. He has been trying to ambulate a few blocks. He continues to participate in physical therapy. There is no history of fever, chills, nausea, or vomiting. PAST MEDICAL HISTORY: Recently admitted with a non-ST elevation DE, found to have severe multivessel coronary artery disease. A cardiothoracic consultation was obtained, recommended surgery. However, the patient declined and wanted to continue with medical therapy. He has a history of diabetes mellitus and evident history of heart failure attributed to diastolic dysfunction, EF in the 50% range. Paroxysmal atrial fibrillation, maintained in sinus rhythm and anticoagulation therapy. History of chronic kidney disease with a solitary lung. History of long cancer/COPD. Hypertension and hypercholesterolemia. ALLERGIES: None. MEDICATIONS AT HOME: Include Eliquis 5 mg twice a day, amiodarone 200 mg daily, Lipitor 80 mg daily, hydralazine 50 mg q.8, Imdur 60 mg, Coreg 12.5 mg twice a day, lisinopril 20 mg daily, aspirin, Xanax, insulin, and glimepiride. SOCIAL HISTORY: Lives with his daughter. Former tobacco smoker. FAMILY HISTORY: Negative for premature CAD. REVIEW OF SYSTEMS: A full 10-point review of systems performed. Only the pertinent positives and negatives are described in the HPI. PHYSICAL EXAMINATION: VITAL SIGNS: Blood pressure is 168/90 and heart rate is 70 beats per minute. GENERAL APPEARANCE: This is an elderly appearing male, in no acute respiratory distress. [address] [address] CONSULTATION Name: BUBBA VICKERS Room #: 307-P [facility] IN M.R.#: [id number] Admission: 10/27/16 Attend Phys: Adela Moran Discharge: Date of : 37 Report #: [id number] HEAD AND EYES: Normocephalic. Sclerae are anicteric. NECK: Supple, no JVD. LUNGS: Clear to auscultation. No wheezing. CARDIAC: Regular rate and rhythm, S1 and S2 positive, 1/6 systolic murmur. ABDOMEN: Soft, nontender. Bowel sounds positive. EXTREMITIES: No cyanosis. Trace edema. LABORATORY VALUES: White count is 6.7, hemoglobin is 11.5. Sodium is 140, creatinine is 1.9. Troponin is 0.26. ASSESSMENT AND PLAN: 1. Hypertensive urgency, may be related to dietary indiscretion. We will continue with medications for now. At this time, we will increase the dose of hydralazine. We would try to avoid adding diuretic therapy, as this may exacerbate his renal insufficiency. Another option would be the addition of amlodipine. 2. Coronary artery disease, minimal troponin elevation in the indeterminate range. The significance is unclear, clinically stable with no symptoms of angina. Probably a false positive elevation in view of his renal disease. Continue to monitor. 3. Paroxysmal atrial fibrillation, remains in sinus rhythm. Continue with meds. 4. Diabetes mellitus, episode of hypoglycemia, as per PCP. 5. Hypertension, continue with medications and increase hydralazine dose. 6. Hypercholesterolemia, continue with statin. 7. Renal insufficiency, follow creatinine. <ELECTRONICALLY SIGNED> By: Yoel Ortiz MD 10/28/16 [id number] Yoel Ortiz MD /nt
[~2016-10-27 01:37] MED LIST changes: +ASPIR 8181 MG PO; +CARVEDILOL12.5 MG PO; +CHLORTHALIDONE25 MG PO; +HYDRALAZINE 5050 MG PO; +IMDUR 60 MG TAB60 M1 PO; +NORVASC10 MG PO
[2016-10-27] MEDS ORDERED: PACERONE 200 M200 M1 PO (03:57)
[2016-10-27] MEDS ORDERED: NOVOLOG100 UNIT/1 SUBQ (03:59)
[2016-10-27] MEDS ORDERED: XANAX 0.25 MG0.25 MG PO (04:01)
[2016-10-27 05:45] LABS: HEMATOCRIT 35.1 % (42.0-52.0); HEMOGLOBIN 11.5 gm/dL (14.0-18.0); MCH 29.2 pg (26.0-34.0); MCHC 32.9 g/dL (28.0-37.0); MCV 88.8 fL (80.0-100.0); RBC 3.95 mil/uL (4.50-6.00); RDW 16.4 % (10.5-14.5); WBC 6.7 thou/uL (4.0-11.0)
[2016-10-27 05:58] LABS: CALCIUM 8.6 mg/dL (8.5-10.1); CREATININE 1.9 mg/dL (0.7-1.3); MAGNESIUM 1.2 mg/dL (1.8-2.4); POTASSIUM 3.9 mmol/L (3.5-5.1); TROPONIN-I 0.26 ng/mL (<0.04-0.07)
[2016-10-28] VITALS (8 sets, daily range): BP systolic 158–220; BP diastolic 82–118
[2016-10-28 05:03] LABS: CALCIUM 8.5 mg/dL (8.5-10.1); CREATININE 1.7 mg/dL (0.7-1.3); POTASSIUM 4.5 mmol/L (3.5-5.1)
[2016-10-29] VITALS (8 sets, daily range): BP systolic 119–219; BP diastolic 52–115
[2016-10-29 06:36] LABS: HEMATOCRIT 35.8 % (42.0-52.0); HEMOGLOBIN 11.6 gm/dL (14.0-18.0); MCH 28.8 pg (26.0-34.0); MCHC 32.4 g/dL (28.0-37.0); PLATELET COUNT 298 thou/uL (150-400); RBC 4.02 mil/uL (4.50-6.00); RDW 16.1 % (10.5-14.5); WBC 6.5 thou/uL (4.0-11.0)
[2016-10-29 06:37] LABS: MANUAL DIFF YES
[2016-10-29 06:51] LABS: CALCIUM 8.6 mg/dL (8.5-10.1); CREATININE 1.6 mg/dL (0.7-1.3); POTASSIUM 4.4 mmol/L (3.5-5.1)
[2016-10-29 09:51] LABS: ABSOLUTE NEUTROPHILS 5.6 thou/uL (1.4-8.2); ANISOCYTOSIS SLIGHT; OVALOCYTES FEW; TOTAL CELL COUNT 100
[2016-10-30] VITALS (9 sets, daily range): BP systolic 124–198; BP diastolic 65–105
[2016-10-30 06:56] LABS: MAGNESIUM 1.7 mg/dL (1.8-2.4); POTASSIUM 4.6 mmol/L (3.5-5.1)
[2016-10-30 06:57] LABS: CALCIUM 8.8 mg/dL (8.5-10.1); CREATININE 1.9 mg/dL (0.7-1.3); POTASSIUM 4.6 mmol/L (3.5-5.1)
[2016-10-30 07:00] LABS: ALBUMIN 2.8 g/dL (3.4-5.0); PHOSPHORUS 3.3 mg/dL (2.5-4.9)
[2016-10-31 05:04] LABS: ALBUMIN 2.6 g/dL (3.4-5.0); CALCIUM 8.5 mg/dL (8.5-10.1); CREATININE 2.6 mg/dL (0.7-1.3); POTASSIUM 4.9 mmol/L (3.5-5.1)
[2016-10-31 05:08] VITALS: BP 193/97
[2016-10-31] MEDS ORDERED: FLONASE 0.05%50 MCG NASAL (08:33)
[2016-10-31 08:46] VITALS: BP 186/95
[2016-10-31 09:10] VITALS: BP 186/95
[2016-10-31 10:12] VITALS: BP 186/95
[2016-10-31 15:32] VITALS: BP 186/95
== END 2016-10-31 11:30 | disposition home health service (06) | DRG 304 ==
LOC: 3N 01:37 → 4W 10-29 11:39 → ENTRNSPT 10-31 11:23 → EDTRNSPTSTS 10-31 11:24 → 4W 10-31 11:30
PROVIDERS: Family Medicine; Hospitalist; Internal Medicine Cardiovascular Disease; Nurse Practitioner Acute Care
DX: I16.0 Hypertensive urgency (principal); N17.0 Acute kidney failure with tubular necrosis; I50.30 Unspecified diastolic (congestive) heart failure; Q60.0 Renal agenesis, unilateral; I13.0 Hypertensive heart and chronic kidney disease with heart failure and stage 1 through stage 4 chronic kidney disease, or unspecified chronic kidney disease; I25.10 Atherosclerotic heart disease of native coronary artery without angina pectoris; I48.0 Paroxysmal atrial fibrillation; E11.22 Type 2 diabetes mellitus with diabetic chronic kidney disease; E78.00 Pure hypercholesterolemia, unspecified; J44.9 Chronic obstructive pulmonary disease, unspecified; E78.5 Hyperlipidemia, unspecified; H54.41 Blindness, right eye, normal vision left eye; F41.9 Anxiety disorder, unspecified; G89.29 Other chronic pain; M54.9 Dorsalgia, unspecified; N18.3 Chronic kidney disease, stage 3 (moderate); I25.2 Old myocardial infarction; Z85.118 Personal history of other malignant neoplasm of bronchus and lung; Z87.891 Personal history of nicotine dependence; Z90.5 Acquired absence of kidney; Z80.8 Family history of malignant neoplasm of other organs or systems; Z83.3 Family history of diabetes mellitus; Z82.49 Family history of ischemic heart disease and other diseases of the circulatory system; Z82.3 Family history of stroke; Z98.42 Cataract extraction status, left eye; Z98.41 Cataract extraction status, right eye
CPT/HCPCS: 10045; 10096